=== PATIENT | male | born 1930 | race Caucasian/White ===

== ENCOUNTER 2016-06-08 17:10 | Emergency (ER) | payer MEDICARE, OTHER ==
[~2016-06-08] VITALS: Ht 182.9 cm; Wt 80.4 kg
[2016-06-08 17:59] LABS: BASOPHILS % (AUTO) 0 % (0-2); EOSINOPHILS # (AUTO) 0.4 10^3uL; EOSINOPHILS % (AUTO) 4 % (0-4); LYMPHOCYTES # (AUTO) 1.5 X10^3; MEAN CORPUSCULAR HEMOGLOBIN 30.9 PG (26.0-34.0); MEAN CORPUSCULAR HGB CONC 34.4 g/dL (31.0-37.0); MEAN CORPUSCULAR VOLUME 90 FL (80-100); MEAN PLATELET VOLUME 9.3 FL (6.0-9.5); MONOCYTES # (AUTO) 1.1 X10^3; MONOCYTES % (AUTO) 9 % (3-11); NEUTROPHILS % (AUTO) 74 % (51-67); PLATELET COUNT 226 10^3uL (150-450); WHITE BLOOD COUNT 12.07 10^3uL (4.0-11.0)
[2016-06-08 18:04] LABS: BILIRUBIN,URINE Negative (Negative); CLARITY,URINE Cloudy; COLOR,URINE Yellow; GLUCOSE, URINE (UA) Negative (Negative); LEUKOCYTE ESTERASE ,URINE 1+ (Negative); UROBILINOGEN,URINE 0.2 mg/dL (0.2-1.0)
[2016-06-08 18:12] LABS: URINE CENTRIFUGED VOLUME 10 mL
[2016-06-08 18:20] LABS: ALKALINE PHOSPHATASE 131 U/L (38-126); ANION GAP 13.4 MEQ/L (3-15); BUN/CREATININE RATIO 17 (10-20); CALCULATED IONIZED CALCIUM 3.8 mg/dL (3.8-4.6); TOTAL PROTEIN 7.4 g/dL (6.4-8.5)
[2016-06-08] MEDS ORDERED: cefTRIAXone SODIUM 1,000 MG in SODIUM CHLORIDE 50 ML IV ONE (18:20)
[2016-06-08 18:45] VITALS: BP 115/65
[2016-06-08 18:45] LABS: INFLUENZA VIRUS TYPE A ANTIBOD Negative (NEGATIVE); INFLUENZA VIRUS TYPE B ANTIBOD Negative (NEGATIVE)
== END 2016-06-08 19:06 | disposition home or self-care (01) ==
LOC: ED 17:12
DX: N39.0 Urinary tract infection, site not specified (principal); E86.0 Dehydration; R55 Syncope and collapse
CPT/HCPCS: 36415; 51701; 80053; 81003; 81015; 84484; 85025; 87088; 87502; 93005; 96361; 96365; 99284; J0696; J7030; 87077; 87186; 93010

== ENCOUNTER → 2016-06-08 | Outpatient (CLI) | payer MEDICARE, OTHER | LOC: EMS 16:47 | DX: Z53.20 Procedure and treatment not carried out because of patient's decision for unspecified reasons (principal) ==